=== PATIENT | male | born 1940 | race Caucasian/White ===

== ENCOUNTER 2023-04-16 12:40 | Day surgery (SDC) | payer BC ==
[2023-04-12 16:30] LABS: BASOPHILS # (AUTO) 0.1 X10'3 (0-0.2); BASOPHILS % (AUTO) 0.9 % (0-1); EOSINOPHILS # (AUTO) 0.3 X10'3 (0-0.9); EOSINOPHILS % (AUTO) 5.4 % (0-6); HEMOGLOBIN 14.6 g/dl (14.0-17.9); LYMPHOCYTES # (AUTO) 1.6 X10'3 (1.1-4.8); LYMPHOCYTES % (AUTO) 25.1 % (21-51); MEAN CORPUSCULAR HEMOGLOBIN 29.5 PG (27.0-31.0); MEAN CORPUSCULAR HGB CONC 32.5 g/dL (33.0-36.5); MEAN CORPUSCULAR VOLUME 90.7 FL (78-98); MEAN PLATELET VOLUME 8.3 FL (7.4-10.4); MONOCYTES # (AUTO) 0.8 X10'3 (0-0.9); MONOCYTES % (AUTO) 12.1 % (2-12); NEUTROPHILS # (AUTO) 3.6 X10'3 (1.8-7.7); NEUTROPHILS % (AUTO) 56.5 % (42-75); PLATELET COUNT 243 X10'3 (140-440); RED BLOOD COUNT 4.96 X10'6 (4.70-6.10); RED CELL DISTRIBUTION WIDTH 13.3 % (11.5-14.5); WHITE BLOOD COUNT 6.4 X10'3 (4.5-11.0)
[2023-04-12 17:11] LABS: APTT 31 SECONDS (22-32); PROTHROMBIN TIME 11.2 SECONDS (9.0-12.0)
[2023-04-12 17:19] LABS: ALBUMIN 3.5 G/DL (3.4-5.0); ANION GAP 6 (8-16); BLOOD UREA NITROGEN 20 MG/DL (7-18); BUN/CREATININE RATIO 15.9 (10.0-20.0); CALCIUM 9.6 MG/DL (8.5-10.1); CHLORIDE 102 MMOL/L (99-107); CREATININE 1.26 MG/DL (0.60-1.10); GLUCOSE 77 MG/DL (70-104); POTASSIUM 5.1 MMOL/L (3.5-5.1); SODIUM 134 MMOL/L (135-145); TOTAL CARBON DIOXIDE 25.7 MMOL/L (24-32); eGFR 55 ML/MIN
[~2023-04-16] VITALS: Ht 182.9 cm; Wt 71.2 kg
[2023-04-16] VITALS (10 sets, daily range): BP systolic 110–167; BP diastolic 60–90; PULSE 48–60; RESP 16; TEMP 97.7; O2SAT 90–100
[2023-04-16] MEDS ORDERED: NICO2LOZ47 BC (13:05)
[2023-04-16] MEDS ORDERED: SOTA80TA PO (13:05)
[2023-04-16] MEDS ORDERED: ATOR20TA66 PO (13:05)
[2023-04-16] MEDS ORDERED: APIX5TAB3 PO (13:05)
[2023-04-16] MEDS ORDERED: MIDAZolam 1mg/ml 10ml vial IV ONE (13:05)
[2023-04-16] MEDS ORDERED: fentaNYL/PF 50MCG/1 ML 2ML syringe IV ONE (13:05)
[2023-04-16] MEDS ORDERED: normal saline 1000ml 1,000 ML IV SCH (13:05)
[2023-04-16] MEDS ORDERED: MULT-1074 PO (13:05)
[2023-04-16] MEDS ORDERED: LISI10TA27 PO (13:05)
== END 2023-04-16 17:25 | disposition home or self-care (01) ==
LOC: SSTAY O 12:40
PROVIDERS: ATTEND Student in an Organized Health Care Education/Training Program
DX: I48.91 Unspecified atrial fibrillation (principal); I10 Essential (primary) hypertension; E78.5 Hyperlipidemia, unspecified; Z79.899 Other long term (current) drug therapy; Z79.82 Long term (current) use of aspirin; Z79.01 Long term (current) use of anticoagulants
CPT/HCPCS: 36415; 80048; 85025; 85610; 85730; 92960; 93005; J2250; J3010; J7030; A4620; A6258